=== PATIENT | female | born 1955 | race Caucasian/White ===

== ENCOUNTER → 2017-03-04 | Outpatient (CLI) | payer BC ==
--- NOTE | 2017-03-04 21:45 | Diagnostic Imaging Report ---
INDICATION: Digital screening. The current study was also evaluated with a Computer Aided Detection (CAD) system. COMPARISON: March 2013, December 2014, and February 2016. FINDINGS: The parenchymal pattern is heterogeneous and dense limiting mammographic sensitivity but unchanged from prior. No breast mass, spiculated lesion, suspicious calcifications, architectural distortion, or changes are identified. IMPRESSION: Stable negative mammograms limited by dense parenchymal pattern. ACR BI-RADS Category 1: Negative. Result letter will be mailed to the patient. Note: At least 10% of breast cancer is not imaged by mammography. Dictated by: Dictated on workstation # [id number]
== END ==
LOC: RAD 08:23
PROVIDERS: ATTEND Nurse Practitioner
DX: Z12.31 Encounter for screening mammogram for malignant neoplasm of breast (principal)